=== PATIENT | male | born 1990 | race Caucasian/White ===

== ENCOUNTER 2019-11-20 04:18 | Emergency (ER) | payer BC ==
[~2019-11-20] VITALS: Ht 170.2 cm; Wt 72.6 kg
[2019-11-20] MEDS ORDERED: IBUPROFEN 600600 M1 PO (05:55)
[2019-11-20] MEDS ORDERED: PROMETH-CODEIN 65 ML PO (05:55)
[2019-11-20] MEDS ORDERED: PROAIR HFA8.5 GM INH (05:55)
[2019-11-20] MEDS ORDERED: ZOFRAN ODT4 MG PO (05:55)
[2019-11-20 06:19] VITALS: BP 142/70
== END 2019-11-20 06:20 | disposition home or self-care (01) ==
LOC: ER 04:18
DX: J10.1 Influenza due to other identified influenza virus with other respiratory manifestations (principal)